=== PATIENT | female | born 1960 | race Caucasian/White ===

== ENCOUNTER 2016-09-30 09:27 | Emergency (ER) | payer BC, OTHER ==
[2016-09-30 09:36] VITALS: BP 117/57; PULSE 69; TEMP 98.5; BMI 34.0
[2016-09-30] MEDS ORDERED: MECLIZINE HCL 25 MG TABLET (FP) PO ONE (10:09)
[2016-09-30] MEDS ORDERED: ALBUTEROL SO4 0.083% IH SOL 2.5 MG/3 ML VIAL.NEB. NEB ONE ×2 (10:09→10:16)
[2016-09-30] MEDS ORDERED: MECLIZINE HCL 25 MG TABLET (FP) ONE (10:13)
--- NOTE | 2016-09-30 10:59 | PDOC ---
History of Present Illness - General Chief Complaint: Headache Stated Complaint: HEADACHES, COUGH Time Seen by Provider: 09/30/16 09:57 History Source: Patient Exam Limitations: No Limitations - History of Present Illness Initial Comments: 09/30/16 10:54 56 yr female with headache, cough facial pressure for 3 days. no fever, no chest or abd pain no shortness of breath. Pt with history of cerebral anerysm right side clipping 2012. Pt has headache on right side. no vision changes. Severity: Yes: mild Past History - Past Medical History Allergies/Adverse Reactions: Allergies Allergy/AdvReac Type Severity Reaction Status Date / Time No Known Allergies Allergy Verified 09/30/16 09:36 Home Medications: Ambulatory Orders Amox-Tr/K Cl [Augmentin - 875Mg Tablet] 1 tab PO BID #20 tablet 09/30/16 Fluticasone Prop 0.05% Nasal [Flonase -] 1 - 2 spray NS DAILY #1 spray.pump 11/15 Meclizine HCl [Antivert -] 12.5 mg PO TID PRN #21 tablet 09/30/16 Dialysis: Yes HTN: Yes Hypercholesterolemia: Yes Other medical history: cerebral aneysrsym - Psycho/Social/Smoking Cessation Hx Anxiety: No Suicidal Ideation: No Smoking History: Never smoked Information on smoking cessation initiated: No Hx Alcohol Use: No Drug/Substance Use Hx: No Substance Use Type: None Neuro Specific PMHX - Complaint Specific PMHX Other Neuro History: cerebral anyrsysm Review of Systems - Review of Systems Able to Perform ROS?: Yes Is the patient limited [place] proficient: No Constitutional: No: Symptoms Reported HEENTM: Yes: Symptoms Reported, Nose Congestion Respiratory: Yes: Symptoms reported, Cough Cardiac (ROS): No: Symptoms Reported ABD/GI: No: Symptoms Reported : No: Symptoms Reported Neurological: Yes: Symptoms reported, Headache, Dizziness *Physical Exam - Vital Signs Last Vital Signs Temp Pulse Resp BP Pulse Ox 98.5 F 69 18 117/57 100 09/30/16 09:34 09/30/16 09:34 09/30/16 09:34 09/30/16 09:34 09/30/16 09:34 - Physical Exam General Appearance: Yes: Nourished, Appropriately Dressed HEENT: positive: EOMI, FREDIS Neck: positive: Supple. negative: Tender Respiratory/Chest: positive: Lungs Clear, Normal Breath Sounds Cardiovascular: positive: Regular Rhythm, Regular Rate Gastrointestinal/Abdominal: positive: Normal Bowel Sounds, Soft Musculoskeletal: positive: Normal Inspection Extremity: positive: Normal Capillary Refill, Normal Inspection, Normal Range of Motion Integumentary: positive: Normal Color, Dry, Warm Neurologic: positive: Fully Oriented, Alert, Normal Mood/Affect, Normal Response , Motor Strength 01/31 ED Treatment Course - RADIOLOGY Radiology Studies Ordered: Category Date Time Status HEAD CT WITHOUT CONTRAST [CT] Stat CT Scan 09/30/16 10:09 Completed - Medications Given in the ED: ED Medications Discontinued Medications Generic Name Dose Route Start Last Admin Trade Name Freq PRN Reason Stop Dose Admin Albuterol Sulfate 1 amp 09/30/16 10:09 09/30/16 10:18 Ventolin 0.083% Nebulizer Soln - NEB 09/30/16 10:10 1 amp ONCE ONE Administration Meclizine HCl 25 mg 09/30/16 10:09 09/30/16 10:18 Antivert - PO 09/30/16 10:10 25 mg ONCE ONE Administration Medical Decision Making - Medical Decision Making 09/30/16 10:59 cc: headache , cough sinus pressure will give meclisze, pt has dizzyness with movement, albuterol for cough head ct to r/o aneyrysm 09/30/16 10:[address] is negative for infarct, anyrysm will treat for sinusutis 09/30/16 11:13 *DC/Admit/Observation/Transfer Diagnosis at time of Disposition: Acute maxillary sinusitis Qualifiers: Recurrence: recurrent Qualified Code(s): J01.01 - Acute recurrent maxillary sinusitis - Discharge Dispostion Disposition: HOME Condition at time of disposition: Good - Prescriptions Prescriptions: Meclizine HCl [Antivert -] 12.5 mg PO TID PRN #21 tablet PRN Reason: dizzyness Amox-Tr/K Cl [Augmentin - 875Mg Tablet] 1 tab PO BID #20 tablet Fluticasone Prop 0.05% Nasal [Flonase -] 1 - 2 spray NS DAILY #1 spray.pump - Referrals Referrals: Alessandra Begum MD [Primary Care Provider] - - Patient Instructions Additional Instructions: take meclizine as needed for dizzyness use the nasal spray as directed for sinusitus decaf tea with honey and lemon for cough take the augmentin as directed for 7 days follow with ENT for follow up if not improving
== END 2016-09-30 11:31 | disposition home or self-care (01) ==
LOC: JERFT 09:27
PROC: 3E0F7GC Introduction of Other Therapeutic Substance into Respiratory Tract, Via Natural or Artificial Opening (ICD-10-PCS; principal; 2016-09-30)
DX: J01.00 Acute maxillary sinusitis, unspecified (principal)
CPT/HCPCS: 70450-TC; 94640; 99281-25

== ENCOUNTER 2018-11-29 11:45 | Emergency (ER) | payer BC, OTHER ==
[2018-11-29 11:53] VITALS: BP 131/65; PULSE 64; TEMP 98.1; BMI 37.8
--- NOTE | 2018-11-29 12:46 | PDOC ---
History of Present Illness - General Chief Complaint: Injury Stated Complaint: POST FALL / DIZZYNESS Time Seen by Provider: 11/29/18 12:29 History Source: Patient - History of Present Illness Initial Comments: 11/29/18 12:45 58f with pmh of cerebral aneurysm right side clipping 2013, hypertension and HLD presenting to the Ed after a fall on ice on fall on her head, right wrist and right ankle. She went straight to work after that but was feeling dizzy and vomited multiple time. Went home after work and went right to sleep as she was very sleepy. Call off work the next day and decided to come to the ER today as her pain wasn't diminishing. She Is able to walk but it is painful to do so and has some pain on inspiration. Denies neurological deficit. Past History - Past Medical History Allergies/Adverse Reactions: Allergies Allergy/AdvReac Type Severity Reaction Status Date / Time No Known Allergies Allergy Verified 11/29/18 11:53 Home Medications: Ambulatory Orders Amox-Tr/K Cl [Augmentin - 875Mg Tablet] 1 tab PO BID #20 tablet 09/30/16 Fluticasone Prop 0.05% Nasal [Flonase -] 1 - 2 spray NS DAILY #1 spray.pump 11/15 Meclizine HCl [Antivert -] 12.5 mg PO TID PRN #21 tablet 09/30/16 Methocarbamol [Robaxin -] 500 mg PO TID #21 tablet 11/29/18 COPD: No Diabetes: Yes (boarder line) Dialysis: Yes HTN: Yes Hypercholesterolemia: Yes - Suicide/Smoking/Psychosocial Hx Smoking History: Never smoked Hx Alcohol Use: No Drug/Substance Use Hx: No Substance Use Type: None Review of Systems - Review of Systems Able to Perform ROS?: Yes Is the patient limited [place] proficient: No Constitutional: No: Symptoms Reported HEENTM: No: Symptoms Reported Respiratory: No: Symptoms reported Cardiac (ROS): No: Symptoms Reported ABD/GI: No: Symptoms Reported Musculoskeletal: Yes: See HPI Integumentary: No: Symptoms Reported All Other Systems: Reviewed and Negative *Physical Exam - Vital Signs Last Vital Signs Temp Pulse Resp BP Pulse Ox 98.1 F 64 18 131/65 99 11/29/18 11:51 11/29/18 11:51 11/29/18 11:51 11/29/18 11:51 11/29/18 11:51 - Physical Exam General Appearance: Yes: Appropriately Dressed, Mild Distress, Obese HEENT: positive: EOMI, FREDIS, Other Neck: positive: Tender midline Respiratory/Chest: positive: Lungs Clear, Normal Breath Sounds. negative: Chest Tender, Respiratory Distress Cardiovascular: positive: Regular Rhythm, Regular Rate, S1, S2 Musculoskeletal: positive: Vertebral Tenderness (cervical + thoracic) Extremity: positive: Other (tender right wrist, elbow and ankle. no pain along the leg or forearm. ) Neurologic: positive: Fully Oriented, Alert, Normal Mood/Affect, Normal Response , Motor Strength 5/5 Moderate Sedation - Procedure Monitoring Vital Signs: Procedure Monitoring Vital Signs Temperature 98.1 F 11/29/18 11:51 Pulse Rate 64 11/29/18 11:51 Respiratory Rate 18 11/29/18 11:51 Blood Pressure 131/65 11/29/18 11:51 O2 Sat by Pulse Oximetry (%) 99 11/29/18 11:51 ED Treatment Course - RADIOLOGY Radiology Studies Ordered: Category Date Time Status CERVICAL SPINE CT W/O CONTR [CT] Stat CT Scan 11/29/18 12:[address] WITHOUT CONTRAST [CT] Stat CT Scan 11/29/18 12:[address] W/WO CONTR [CT] Stat CT Scan 11/29/18 12:40 Ordered ANKLE & FOOT-RIGHT* [RAD] Stat Radiology 11/29/18 12:41 Ordered CHEST PA & LAT [RAD] Stat Radiology 11/29/18 12:42 Ordered ELBOW-RIGHT [RAD] Stat Radiology 11/29/18 12:41 Ordered LEG TIB/FIB-RIGHT [RAD] Stat Radiology 11/29/18 12:42 Ordered WRIST W/HAND-RIGHT* [RAD] Stat Radiology 11/29/18 12:40 Ordered Medical Decision Making - Medical Decision Making 11/29/18 12:58 Need to r/o head bleed, cervical/thoracic spine frature with CT's. Will obtain plain films of R extremities since she presents with bony tenderness. Pain control with percocet. 11/29/18 15:02 All imaging negative for fracturwe. Will send home with rx for robaxin and work note. *DC/Admit/Observation/Transfer Diagnosis at time of Disposition: Fall due to ice or snow - Discharge Dispostion Disposition: HOME Decision to Admit order: No - Prescriptions Prescriptions: Methocarbamol [Robaxin -] 500 mg PO TID #21 tablet - Referrals - Patient Instructions Printed Discharge Instructions: How to Prevent Falls Additional Instructions: Follow up with your primary care provider. Come back to the emergency department for any new, worsening or concerning symptoms. - Post Discharge Activity Forms/Work/School Notes: Back to Work
--- NOTE | 2018-11-29 13:09 | PDOC ---
Attending Attestation - HPI HPI: 11/29/18 13:18 The patient is a 58 year old female, with a significant PMH of cerebral aneurysm 2013, HTN and HLD who presents to the emergency department s/p fall last when they slipped on ice. The patient states she hit her head, no LOC, and preceded to go to work. The patient reports that she felt very sleepy and had a couple of episodes of vomiting before going to bed that night. She notes going to work the next day but having to leave early as she was very tired. Patient did not get better which prompted her to come to the ED. The patient denies chest pain, shortness of breath, and dizziness. Denies fever, chills, diarrhea and constipation. Denies dysuria, frequency, urgency and hematuria. Allergies: NKA Social history: None reported <Cynthia Medeiros - Last Filed: 11/29/18 13:18> - Resident Resident Name: Gume Jara - ED Attending Attestation I have performed the following: I have examined & evaluated the patient, The case was reviewed & discussed with the resident, I agree w/resident's findings & plan, Exceptions are as noted - Physicial Exam PE: GENERAL: Awake, alert, and fully oriented, in no acute distress HEAD: No signs of trauma EYES: PERRLA, EOMI, sclera anicteric, conjunctiva clear ENT: Auricles normal inspection, hearing grossly normal, nares patent, oropharynx clear without exudates. Moist mucosa NECK: Normal ROM, supple, no lymphadenopathy, JVD, or masses LUNGS: Breath sounds equal, clear to auscultation bilaterally. No wheezes, and no crackles HEART: Regular rate and rhythm, normal S1 and S2, no murmurs, rubs or gallops ABDOMEN: Soft, nontender, normoactive bowel sounds. No guarding, no rebound. No masses EXTREMITIES: Normal range of motion, no edema. No clubbing or cyanosis. No cords, erythema, or tenderness NEUROLOGICAL: Cranial nerves II through XII grossly intact. Normal speech, normal gait. Motor and sensation intact SKIN: Warm, Dry, normal turgor, no rashes or lesions noted. SPINE: +Midline tenderness to c-spine and t-spine. No stepoffs. +R paraspinal soft tissue tenderness with trapezius spasm. - Medical Decision Making Pt is neurologically intact. CTH, c-spine, and t-spine no acute findings. XRs no fractures. Will give her a work note and instructions for concussion. Muscle relaxer for R neck strain. <Isabel Grey - Last Filed: 11/29/18 14:48> Attestations - Attestations 11/29/18 13:18 Documentation prepared by Cynthia Medeiros, acting as medical reimbursement specialist for Isabel Grey MD. <Cynthia Medeiros - Last Filed: 11/29/18 13:18>
--- NOTE | 2018-11-30 10:46 | EKG ---
Test Reason : Blood Pressure : / mmHG Vent. Rate : 059 BPM Atrial Rate : 059 BPM P-R Int : 148 ms QRS Dur : 094 ms QT Int : 398 ms P-R-T Axes : 041 038 059 degrees QTc Int : 394 ms SINUS BRADYCARDIA OTHERWISE NORMAL ECG NO PREVIOUS ECGS AVAILABLE Confirmed by JAREK CORADO MD ([id number]) on 11/30/2018 10:46:21 AM Referred By: Confirmed By:JAREK CORADO MD
== END 2018-11-29 15:32 | disposition home or self-care (01) ==
LOC: JER 11:45
DX: S09.8XXA Other specified injuries of head, initial encounter (principal); M54.2 Cervicalgia; M54.6 Pain in thoracic spine; M25.531 Pain in right wrist; M25.571 Pain in right ankle and joints of right foot; W00.2XXA Other fall from one level to another due to ice and snow, initial encounter; Y93.89 Activity, other specified; Y92.89 Other specified places as the place of occurrence of the external cause; Y99.8 Other external cause status; I10 Essential (primary) hypertension; E78.5 Hyperlipidemia, unspecified; Z86.79 Personal history of other diseases of the circulatory system
CPT/HCPCS: 70450-TC; 71046-TC-FY; 72125-TC; 72128-TC; 73070-TC-RT-FY; 73110-TC-RT-FY; 73130-TC-RT-FY; 73590-TC-RT-FY; 73610-TC-RT-FY; 73630-TC-RT-FY; 93005; 93010; 99281-25

== ENCOUNTER 2021-01-12 16:06 | Emergency (ER) | payer BC, OTHER ==
[2021-01-12 16:11] VITALS: BP 153/88; PULSE 86; TEMP 98.2; BMI 42.7
== END 2021-01-12 17:06 | disposition home or self-care (01) ==
LOC: JER 16:06
DX: J01.00 Acute maxillary sinusitis, unspecified (principal); Z11.52 Encounter for screening for COVID-19
CPT/HCPCS: 99283-25; C9803; U0003; U0005

== ENCOUNTER 2021-01-15 10:43 | Inpatient (IN) | payer BC ==
[2021-01-15] MEDS ORDERED: LIDOCAINE 5% TOPICAL PATCH TP ONE (11:36)
[2021-01-15] MEDS ORDERED: KETOROLAC TROMETHAMINE 30 MG/1 ML VIAL IM ONE (11:36)
[2021-01-15] MEDS ORDERED: KETOROLAC TROMETHAMINE 30 MG/1 ML VIAL ONE (11:51)
[2021-01-15] MEDS ORDERED: LIDOCAINE 5% TOPICAL PATCH ONE (11:51)
[2021-01-15] MEDS ORDERED: ACETAMINOPHEN 500 MG TABLET (FP) PO ONE (12:44)
[2021-01-15] MEDS ORDERED: diazePAM 5 MG TABLET PO ONE (12:44)
[2021-01-15] MEDS ORDERED: diazePAM 2 MG TABLET ONE (13:33)
[2021-01-15] MEDS ORDERED: ACETAMINOPHEN 500 MG TABLET (FP) ONE (13:35)
[2021-01-15] MEDS ORDERED: morphine CARPU-JECT 4 MG/1 ML DISP.SYRIN IVPUSH ONE (14:34)
[2021-01-15] MEDS ORDERED: morphine SULFATE 4 MG/ML VIAL ONE (14:57)
[2021-01-15] MEDS ORDERED: ONDANSETRON 4 MG/2 ML VIAL IVPUSH ONE (15:08)
[2021-01-15] MEDS ORDERED: ONDANSETRON 4 MG/2 ML VIAL ONE (15:09)
[2021-01-15 15:29] LABS: BASO % 0.8 % (0-2.0); EOS % 2.4 % (0-4.5); HEMATOCRIT 38.7 % (32.4-45.2); HEMOGLOBIN 12.9 GM/dL (10.7-15.3); LYMPH % 24.7 % (8-40); MCH 26.6 pg (25.7-33.7); MCHC 33.2 g/dl (32.0-36.0); MEAN CELL VOLUME 80.1 fl (80-96); MEAN PLT VOLUME 9.4 fl (7.5-11.1); MONO % 6.5 % (3.8-10.2); NEUT % 65.6 % (42.8-82.8); PLATELET COUNT 186 K/MM3 (134-434); RBC 4.83 M/mm3 (3.60-5.2); RDW 15.9 % (11.6-15.6); WHITE BLOOD COUNT 8.8 K/mm3 (4.0-10.0)
[2021-01-15 15:49] LABS: ALBUMIN 3.5 g/dl (3.4-5.0); BLOOD UREA NITROGEN 15.6 mg/dL (7-18)
[2021-01-15 15:52] LABS: CREATININE 0.5 mg/dL (0.55-1.3)
[2021-01-15 15:54] LABS: BILIRUBIN,TOTAL 0.5 mg/dL (0.2-1); TOT PROT 6.5 g/dl (6.4-8.2)
[2021-01-15] MEDS ORDERED: MORPHINE SULFATE 2 MG/ML VIAL IVPB PRN (18:19)
[2021-01-15] MEDS ORDERED: ENOXAPARIN NA (PORCINE) 40 MG/0.4 ML DISP.SYRIN SQ ONE (18:40)
[2021-01-15] MEDS: ENOXAPARIN NA (PORCINE) 40 MG/0.4 ML DISP.SYRIN SQ SCH (18:43)
[2021-01-15] MEDS ORDERED: MORPHINE SULFATE 2 MG/ML VIAL ONE (20:11)
[2021-01-15] MEDS ORDERED: LIDOCAINE PATCH REMOVAL MC ONE (22:00)
[2021-01-16 07:55] VITALS: BMI 42.2
[2021-01-16] MEDS: ENOXAPARIN NA (PORCINE) 40 MG/0.4 ML DISP.SYRIN SQ SCH (10:34)
[2021-01-16] MEDS: POLYETHYLENE GLYCOL 3350 119 GM BTL PO SCH ×2 (15:15→21:17)
[2021-01-16] MEDS: GABAPENTIN 300 MG CAPSULE PO SCH ×2 (15:16→21:17)
[2021-01-16] MEDS: METHOCARBAMOL 500 MG TABLET PO SCH ×2 (15:16→21:17)
[2021-01-16] MEDS ORDERED: IBUPROFEN 800 MG/8 ML IJ IVPB PRN (19:46)
[2021-01-16] MEDS: IBUPROFEN 800 MG/8 ML IJ IVPB SCH (20:51)
[2021-01-16] MEDS: SENNOSIDES 8.6MG TABLET (FP) PO PRN (21:17)
[2021-01-16] MEDS: ACETAMINOPHEN 500 MG TABLET (FP) PO SCH (21:17)
[2021-01-17] MEDS: IBUPROFEN 800 MG/8 ML IJ IVPB SCH (04:31)
[2021-01-17] MEDS: ACETAMINOPHEN 500 MG TABLET (FP) PO SCH ×3 (05:51→21:20)
[2021-01-17] MEDS: GABAPENTIN 300 MG CAPSULE PO SCH ×3 (05:51→21:20)
[2021-01-17] MEDS: METHOCARBAMOL 500 MG TABLET PO SCH ×3 (05:51→21:20)
[2021-01-17] MEDS: ENOXAPARIN NA (PORCINE) 40 MG/0.4 ML DISP.SYRIN SQ SCH (10:10)
[2021-01-17] MEDS: PANTOPRAZOLE 20 MG TABLET PO SCH (10:11)
[2021-01-17] MEDS: RAMIPRIL 5 MG CAPSULE PO SCH (10:11)
[2021-01-17] MEDS: POLYETHYLENE GLYCOL 3350 119 GM BTL PO SCH ×2 (10:12→21:21)
[2021-01-17] MEDS ORDERED: SODIUM PHOSPHATE/NA BIPHOS 133 ML ENEMA PR PRN (11:04)
[2021-01-17] MEDS: SENNOSIDES 8.6MG TABLET (FP) PO PRN (21:20)
[2021-01-18] MEDS: IBUPROFEN 600 MG TABLET (FP) PO PRN ×3 (02:41→15:52)
[2021-01-18] MEDS: ACETAMINOPHEN 500 MG TABLET (FP) PO SCH ×3 (05:48→21:15)
[2021-01-18] MEDS: METHOCARBAMOL 500 MG TABLET PO SCH ×3 (05:48→21:14)
[2021-01-18] MEDS: GABAPENTIN 300 MG CAPSULE PO SCH ×3 (05:49→21:14)
[2021-01-18] MEDS: RAMIPRIL 5 MG CAPSULE PO SCH (09:56)
[2021-01-18] MEDS: PANTOPRAZOLE 20 MG TABLET PO SCH (09:57)
[2021-01-18] MEDS: POLYETHYLENE GLYCOL 3350 119 GM BTL PO SCH ×2 (10:01→21:14)
[2021-01-18] MEDS ORDERED: BISACODYL 10 MG SUPP.RECT PR PRN (10:25)
[2021-01-18] MEDS: LIDOCAINE 5% TOPICAL PATCH TP SCH (11:16)
[2021-01-18] MEDS: ENOXAPARIN NA (PORCINE) 40 MG/0.4 ML DISP.SYRIN SQ SCH (11:22)
[2021-01-18] MEDS ORDERED: ACETAMINOPHEN 1000 MG/100 ML VIAL (NON FORMULARY) IVPB ONE (20:00)
[2021-01-18] MEDS: LIDOCAINE PATCH REMOVAL MC SCH (21:14)
[2021-01-19] MEDS ORDERED: LIDOCAINE HCL 1% PRESERVATIVE FREE - 30ML VIAL IJ ONE
[2021-01-19] MEDS ORDERED: DEXAMETHASONE SOD PHOSPHATE 10 MG/1 ML VIAL IVPUSH ONE
[2021-01-19] MEDS: ACETAMINOPHEN 500 MG TABLET (FP) PO SCH ×3 (06:00→21:30)
[2021-01-19] MEDS: GABAPENTIN 300 MG CAPSULE PO SCH ×3 (06:00→21:33)
[2021-01-19] MEDS: METHOCARBAMOL 500 MG TABLET PO SCH ×3 (06:00→21:33)
[2021-01-19] MEDS ORDERED: DEXAMETHASONE SOD PHOSPHATE/PF 10 MG/ML SDV ONE ×2 (07:33→14:17)
[2021-01-19] MEDS: IBUPROFEN 600 MG TABLET (FP) PO PRN ×2 (08:14→18:42)
[2021-01-19] MEDS: PANTOPRAZOLE 20 MG TABLET PO SCH (10:55)
[2021-01-19] MEDS: RAMIPRIL 5 MG CAPSULE PO SCH (10:55)
[2021-01-19] MEDS: LIDOCAINE 5% TOPICAL PATCH TP SCH (10:56)
[2021-01-19] MEDS: POLYETHYLENE GLYCOL 3350 119 GM BTL PO SCH ×2 (10:56→21:34)
[2021-01-19] MEDS ORDERED: ALPRAZolam 0.25 MG TABLET PO ONE (11:15)
[2021-01-19] MEDS ORDERED: oxyCODONE HCL 5 MG TABLET PO PRN (11:52)
[2021-01-19] MEDS: DOCUSATE SODIUM 100 MG CAPSULE (FP) PO SCH ×2 (13:21→21:33)
[2021-01-19] MEDS ORDERED: SODIUM CHLORIDE 0.9% P/F 10 ML VIAL IJ ONE (14:24)
[2021-01-19] MEDS ORDERED: IOHEXOL 180 MG/1 ML ML IJ ONE (14:34)
[2021-01-19 19:19] LABS: HIV INTERPRETATION NEGATIVE (NEGATIVE)
[2021-01-19] MEDS: LIDOCAINE PATCH REMOVAL MC SCH (21:34)
[2021-01-20] MEDS: DOCUSATE SODIUM 100 MG CAPSULE (FP) PO SCH ×2 (05:55→15:06)
[2021-01-20] MEDS: ACETAMINOPHEN 500 MG TABLET (FP) PO SCH ×2 (05:55→15:06)
[2021-01-20] MEDS: METHOCARBAMOL 500 MG TABLET PO SCH ×2 (05:57→15:06)
[2021-01-20] MEDS: GABAPENTIN 300 MG CAPSULE PO SCH ×2 (05:57→15:06)
[2021-01-20] MEDS: LIDOCAINE 5% TOPICAL PATCH TP SCH (09:46)
[2021-01-20] MEDS: RAMIPRIL 5 MG CAPSULE PO SCH (09:46)
[2021-01-20] MEDS: PANTOPRAZOLE 20 MG TABLET PO SCH (09:47)
[2021-01-20] MEDS: POLYETHYLENE GLYCOL 3350 119 GM BTL PO SCH (09:48)
[2021-01-20 15:45] VITALS: BP 132/77; PULSE 77; TEMP 97.9
== END 2021-01-20 15:57 | disposition home or self-care (01) | DRG 552 ==
LOC: JER 10:43 → JERBED 18:11 → J5S 21:44
PROVIDERS: ADMIT Internal Medicine; ATTEND Internal Medicine
PROC: 3E0R3BZ Introduction of Anesthetic Agent into Spinal Canal, Percutaneous Approach (ICD-10-PCS; 2021-01-19)
PROC: 3E0R33Z Introduction of Anti-inflammatory into Spinal Canal, Percutaneous Approach (ICD-10-PCS; principal; 2021-01-19 14:30)
DX: M48.062 Spinal stenosis, lumbar region with neurogenic claudication (principal); Z68.41 Body mass index [BMI] 40.0-44.9, adult; M54.16 Radiculopathy, lumbar region; E11.9 Type 2 diabetes mellitus without complications; I10 Essential (primary) hypertension; E78.5 Hyperlipidemia, unspecified; E66.01 Morbid (severe) obesity due to excess calories; R26.2 Difficulty in walking, not elsewhere classified
CPT/HCPCS: 36415; 72131-TC; 72148-TC; 73523-TC-FY; 76000-TC-FY; 80053; 85025; 86704; 87340; 87389; 87522; 93005; 93010; 97116-GP; 97161-GP; 99285-25; C9803; G0378; J0131; J1100; U0003; U0005

== ENCOUNTER 2021-06-25 12:39 | Emergency (ER) | payer BC ==
[2021-06-25 13:13] VITALS: BP 125/50; PULSE 78; TEMP 97.1; BMI 42.5
[2021-06-25] MEDS ORDERED: ACETAMINOPHEN WITH CODEINE 300MG/30MG TABLET PO ONE (14:12)
== END 2021-06-25 16:00 | disposition home or self-care (01) ==
LOC: JER 12:39
DX: J40 Bronchitis, not specified as acute or chronic (principal)
CPT/HCPCS: 71046-TC-FY; 99284-25; C9803; U0003; U0005

== ENCOUNTER 2022-05-22 09:57 | Emergency (ER) | payer BC ==
[2022-05-22 10:04] VITALS: RESP 18; BMI 37.8
[2022-05-22] MEDS ORDERED: ACETAMINOPHEN 1000 MG/100 ML BAG IVPB ONE (10:42)
[2022-05-22] MEDS ORDERED: ACETAMINOPHEN 500 MG TABLET (FP) PO ONE (11:30)
[2022-05-22] MEDS ORDERED: ACETAMINOPHEN 500 MG TABLET (FP) ONE (11:46)
[2022-05-22 12:45] VITALS: BP 112/58; PULSE 81; TEMP 98.8
== END 2022-05-22 12:45 | disposition home or self-care (01) ==
LOC: JER 09:57
PROC: 3E033NZ Introduction of Analgesics, Hypnotics, Sedatives into Peripheral Vein, Percutaneous Approach (ICD-10-PCS; principal; 2022-05-22)
DX: U07.1 COVID-19 (principal); J06.9 Acute upper respiratory infection, unspecified
CPT/HCPCS: 0241U-QW; 99283-25

== ENCOUNTER 2023-01-06 10:00 | Emergency (ER) | payer BC ==
[2023-01-06 10:08] VITALS: BMI 37.8
[2023-01-06] MEDS ORDERED: ACETAMINOPHEN 500 MG TABLET (FP) PO ONE (12:32)
[2023-01-06 12:39] VITALS: BP 136/74; PULSE 88; RESP 20; TEMP 99
== END 2023-01-06 12:41 | disposition home or self-care (01) ==
LOC: JERFT 10:00
DX: R09.81 Nasal congestion (principal); J34.89 Other specified disorders of nose and nasal sinuses; Z20.822 Contact with and (suspected) exposure to COVID-19
CPT/HCPCS: 0241U-QW; 99283-25

== ENCOUNTER 2024-06-25 12:48 | Emergency (ER) | payer BC ==
[2024-06-25 13:06] VITALS: BP 121/75; PULSE 67; RESP 18; TEMP 97.8; BMI 41.5
== END 2024-06-25 14:02 | disposition home or self-care (01) ==
LOC: JER 12:48 → JERFT 12:48
DX: S40.861A Insect bite (nonvenomous) of right upper arm, initial encounter (principal); L08.9 Local infection of the skin and subcutaneous tissue, unspecified; W57.XXXA Bitten or stung by nonvenomous insect and other nonvenomous arthropods, initial encounter
CPT/HCPCS: 99283-25

== ENCOUNTER 2025-01-30 12:37 | Emergency (ER) | payer BC, OTHER ==
[2025-01-30 12:43] VITALS: RESP 18; BMI 40.8
[2025-01-30] MEDS ORDERED: ACETAMINOPHEN 325 MG TABLET (FP) ONE (14:36)
[2025-01-30] MEDS: ACETAMINOPHEN 325 MG TABLET (FP) PO ONE (14:38)
[2025-01-30 14:39] LABS: ABSOLUTE IMMATURE GRANULOCYTES 0.06 x10^3/uL (0.0-0.031); BASOPHILS # 0.09 x10^3/uL (0.01-0.08); EOSINOPHIL % 2.7 % (0.7-5.8); EOSINOPHILS # 0.23 x10^3/uL (0.04-0.36); HEMATOCRIT 41.3 % (34.1-44.9); HEMOGLOBIN 13.2 g/dL (11.2-15.7); MEAN CELL VOLUME 82.3 fl (79.4-94.8); MEAN PLT VOLUME 11.3 fl (9.4-12.3); MONOCYTE # 0.68 x10^3/uL (0.24-0.86); MONOCYTE % 7.9 % (4.7-12.5); PLATELET COUNT 192 x10^3/uL (182-369); RDW 14.6 % (12.4-16.4)
[2025-01-30 15:03] LABS: POTASSIUM 4.6 mmol/L (3.5-5.1)
[2025-01-30 15:05] LABS: CALCIUM 9.6 mg/dL (8.5-10.1)
[2025-01-30 15:06] LABS: ALBUMIN 3.4 g/dl (3.4-5.0); BLOOD UREA NITROGEN 16.2 mg/dL (7-18); MAGNESIUM 2.1 mg/dL (1.8-2.4)
[2025-01-30 15:09] LABS: CREATININE 0.7 mg/dL (0.55-1.3)
[2025-01-30 15:11] LABS: BILIRUBIN,TOTAL 0.4 mg/dL (0.2-1); TOT PROT 6.7 g/dl (6.4-8.2)
[2025-01-30 15:14] LABS: N-TERMINAL BNP 19.1 pg/ml (5-125)
[2025-01-30 15:17] LABS: PH,URINE 5.5 (5.0-8.0); URINE APPEARANCE CLEAR; URINE BILIRUBIN NEGATIVE (NEGATIVE); URINE COLOR YELLOW; URINE GLUCOSE (UA) 3+ (NEGATIVE); URINE KETONE NEGATIVE (NEGATIVE); URINE LEUK ESTERASE NEGATIVE (NEGATIVE); URINE NITRITE NEGATIVE (NEGATIVE); URINE PROTEIN NEGATIVE (NEGATIVE)
[2025-01-30 18:29] VITALS: TEMP 98.2
[2025-01-30 18:30] VITALS: BP 118/82; PULSE 84
== END 2025-01-30 18:29 | disposition home or self-care (01) ==
LOC: JER 12:37
DX: M79.89 Other specified soft tissue disorders (principal); R07.89 Other chest pain
CPT/HCPCS: 36415; 71046-TC-FY; 80053; 81003; 83735; 83880; 84484; 85025; 93005; 93010; 93970-TC; 99285-25

== ENCOUNTER 2025-02-09 12:26 | Emergency (ER) | payer OTHER ==
[2025-02-09 12:38] VITALS: TEMP 98.4; BMI 32.3
[2025-02-09] MEDS ORDERED: ACETAMINOPHEN 325 MG TABLET (FP) ONE (13:23)
[2025-02-09] MEDS: ACETAMINOPHEN 500 MG TABLET (FP) PO ONE (13:41)
[2025-02-09 14:39] LABS: ABSOLUTE IMMATURE GRANULOCYTES 0.02 x10^3/uL (0.0-0.031); BASOPHILS # 0.03 x10^3/uL (0.01-0.08); EOSINOPHIL % 3.4 % (0.7-5.8); EOSINOPHILS # 0.22 x10^3/uL (0.04-0.36); HEMATOCRIT 40.8 % (34.1-44.9); HEMOGLOBIN 12.9 g/dL (11.2-15.7); MCHC 31.6 g/dl (32.2-35.5); MEAN CELL VOLUME 82.4 fl (79.4-94.8); MEAN PLT VOLUME 11.3 fl (9.4-12.3); MONOCYTE # 0.74 x10^3/uL (0.24-0.86); MONOCYTE % 11.5 % (4.7-12.5); PLATELET COUNT 166 x10^3/uL (182-369); RDW 14.5 % (12.4-16.4)
[2025-02-09 15:02] LABS: POTASSIUM 4.4 mmol/L (3.5-5.1)
[2025-02-09 15:04] LABS: ALBUMIN 3.4 g/dl (3.4-5.0); BLOOD UREA NITROGEN 17.9 mg/dL (7-18); CALCIUM 9.1 mg/dL (8.5-10.1)
[2025-02-09 15:08] LABS: CREATININE 0.7 mg/dL (0.55-1.3)
[2025-02-09 15:09] LABS: BILIRUBIN,TOTAL 0.6 mg/dL (0.2-1); TOT PROT 6.6 g/dl (6.4-8.2)
[2025-02-09 15:40] VITALS: BP 113/66; PULSE 69; RESP 17
== END 2025-02-09 15:48 | disposition home or self-care (01) ==
LOC: JER 12:26
DX: J18.9 Pneumonia, unspecified organism (principal); R07.89 Other chest pain; R05.9 Cough, unspecified
CPT/HCPCS: 0241U-QW; 36415; 71046-TC-FY; 80053; 85025; 93005; 93010; 99285-25